=== PATIENT | male | born 1950 | race Caucasian/White ===

== ENCOUNTER 2022-12-09 14:24 | Outpatient (CLI) | payer MEDICARE, OTHER | END 2022-12-09 23:59 | disposition critical access hospital (66) | LOC: EMS 14:24 | DX: R46.4 Slowness and poor responsiveness (principal); R41.0 Disorientation, unspecified; R61 Generalized hyperhidrosis; R00.0 Tachycardia, unspecified; W18.39XA Other fall on same level, initial encounter; Y93.02 Activity, running; Y92.414 Local residential or business street as the place of occurrence of the external cause | CPT/HCPCS: A0425; A0427 ==

== ENCOUNTER 2022-12-09 14:46 | Emergency (ER) | payer MEDICARE, OTHER ==
[2022-12-09] MEDS ORDERED: SODIUM CHLORIDE 0.9% 1,000 ML IV STA (15:14)
[2022-12-09 15:25] LABS: BASOPHILS # (AUTO) 0.1 10^3/uL (0.0-0.1); BASOPHILS % (AUTO) 1.4 %; EOSINOPHILS # (AUTO) 0.1 10^3/uL (0.0-0.7); EOSINOPHILS % (AUTO) 2.8 %; HCT - HEMATOCRIT 45.9 % (42.0-52.0); HGB - HEMOGLOBIN 15.5 g/dL (14.0-18.0); LYMPHOCYTES # (AUTO) 0.8 10^3/uL (1.5-3.5); LYMPHOCYTES % (AUTO) 19.1 %; MEAN CORPUSCULAR HEMOGLOBIN 30.1 pg (27.0-31.0); MEAN CORPUSCULAR HGB CONC 33.8 g/dL (32.0-36.0); MEAN CORPUSCULAR VOLUME 89.1 fL (80.0-94.0); MEAN PLATELET VOLUME 9.2 fL (7.4-11.4); MONOCYTES # (AUTO) 0.4 10^3/uL (0.0-1.0); MONOCYTES % (AUTO) 10.1 %; NEUTROPHILS # (AUTO) 2.8 10^3/uL (1.5-6.6); NEUTROPHILS % (AUTO) 65.7 %; PLT - PLATELET COUNT 243 10^3/uL (130-450); RED BLOOD COUNT 5.15 10^6/uL (4.70-6.10); RED CELL DISTRIBUTION WIDTH 12.6 % (12.0-15.0); WHITE BLOOD COUNT 4.3 x10^3/uL (4.8-10.8)
[2022-12-09 15:41] LABS: ALBUMIN 4.2 g/dL (3.2-5.5); ALBUMIN/GLOBULIN RATIO 1.6 (1.0-2.2); ALKALINE PHOSPHATASE 85 IU/L (42-121); ALT ALANINE AMINOTRANSFERASE 4 IU/L (10-60); AST ASPARTATE AMINOTRANSFERASE 16 IU/L (10-42); BILIRUBIN,TOTAL 0.8 mg/dL (0.2-1.0); BUN - BLOOD UREA NITROGEN 13 mg/dL (6-20); CALCIUM 9.6 mg/dL (8.5-10.3); CARBON DIOXIDE - CO2 28 mmol/L (21-32); CHLORIDE 103 mmol/L (101-111); CREATININE 0.8 mg/dL (0.6-1.3); ETOH - ETHANOL < 10.0 mg/dL; GFR - MDRD 94 (>89); GLUCOSE 95 mg/dL (74-104); POTASSIUM 3.9 mmol/L (3.5-4.5); SODIUM 136 mmol/L (135-145); TOTAL PROTEIN 6.9 g/dL (6.4-8.9)
--- NOTE | 2022-12-09 15:49 | ED Physician Documentation ---
PD HPI HEAD INJURY - Stated complaint Stated Complaint: Fall - Chief complaint Chief Complaint: Neuro - History obtained from History obtained from: Patient, Family, EMS - Additional information Additional information: Patient is a 72-year-old male with a history of dementia and Parkinson's presenting for evaluation after a witnessed head injury. Patient was out for a run when a bystander saw him trip and fall and hit his head. There is no reported LOC. Patient initially did not want to come for medical evaluation. Patient does not take a blood thinner.He is able to state his name and where he is but is unable to tell me where he was running but knows that he was out for a run. He denies any complaints. Per patient's was at the bedside with them they go for a mile and a half walk every day and sometimes he jogs. Today he was jogging in front of her and ran past her house as he does not always recognize it. He then fell which she did not see but another bystander did. She also reports he fell yesterday during their walk and did sustain abrasions to his head from yesterday's fall. Patient was able to tell me that the abrasions on his face are from yesterday's fall. states that his current confusion is baseline for him and is usually worse in the afternoon and is not been changed in recent days. Review of Systems Unable to obtain: Dementia PD ED PE NORMAL - General General: No acute distress, Well developed/nourished. No: Alert and oriented X 3 (Alert and oriented to person and place but not to month or year.) - HEENT HEENT: PERRL, EOMI, Moist mucous membranes, Pharynx benign, Other (Abrasion to right temporal region) - Neck Neck: Supple, no meningeal sign, No bony TTP. No: C-Spine cleared by NEXUS criteria (Confusion) - Cardiac Cardiac: RRR, No murmur - Respiratory Respiratory: No respiratory distress, Clear bilaterally - Abdomen Abdomen: Soft, Non tender, Non distended - Back Back: No spinal TTP - Derm Derm: Normal color - Extremities Extremities: No deformity - Neuro Neuro: supervisor grading 2-12 intact, No motor deficit, No sensory deficit, Normal speech. No: Alert and oriented X 3 (AO x2) Eye Opening: Spontaneous Motor: Obeys Commands Verbal: Confused GCS Score: 14 Results - Vitals Vitals: Vital Signs - 24 hr 12/09/22 12/09/22 14:56 16:53 Temperature 36.6 C Heart Rate 68 82 Respiratory 22 18 Rate Blood Pressure 147/106 H 148/115 H O2 Saturation 98 100 Oxygen O2 Source Room air - Labs Labs: Laboratory Tests 12/09/22 12/09/22 12/09/22 15:20 15:20 15:20 WBC 4.3 L RBC 5.15 Hgb 15.5 Hct 45.9 MCV 89.1 MCH 30.1 MCHC 33.8 RDW 12.6 Plt Count 243 MPV 9.2 Neut # (Auto) 2.8 Lymph # (Auto) 0.8 L [place] # (Auto) 0.4 Eos # (Auto) 0.1 Baso # (Auto) 0.1 Absolute Nucleated RBC 0.00 Nucleated RBC % 0.0 Sodium 136 Potassium 3.9 Chloride 103 Carbon Dioxide 28 Anion Gap 5.0 L BUN 13 Creatinine 0.8 Estimated GFR (MDRD) 94 Glucose 95 Calcium 9.6 Total Bilirubin 0.8 AST 16 ALT 4 L Alkaline Phosphatase 85 Total Creatine Kinase 91 Total Protein 6.9 Albumin 4.2 Globulin 2.7 Albumin/Globulin Ratio 1.6 Urine Color Urine Clarity Urine pH Ur Specific [place] Urine Protein Urine Glucose (UA) Urine Ketones Urine Occult Blood Urine Nitrite Urine Bilirubin Urine Urobilinogen Ur Leukocyte Esterase Ur Microscopic Review Urine Culture Comments Ethyl Alcohol < 10.0 12/09/22 16:09 WBC RBC Hgb Hct MCV MCH MCHC RDW Plt Count MPV Neut # (Auto) Lymph # (Auto) [place] # (Auto) Eos # (Auto) Baso # (Auto) Absolute Nucleated RBC Nucleated RBC % Sodium Potassium Chloride Carbon Dioxide Anion Gap BUN Creatinine Estimated GFR (MDRD) Glucose Calcium Total Bilirubin AST ALT Alkaline Phosphatase Total Creatine Kinase Total Protein Albumin Globulin Albumin/Globulin Ratio Urine Color YELLOW Urine Clarity CLEAR Urine pH 6.5 Ur Specific [place] 1.020 Urine Protein NEGATIVE Urine Glucose (UA) NEGATIVE Urine Ketones NEGATIVE Urine Occult Blood NEGATIVE Urine Nitrite NEGATIVE Urine Bilirubin NEGATIVE Urine Urobilinogen 0.2 (NORMAL) Ur Leukocyte Esterase NEGATIVE Ur Microscopic Review NOT INDICATED Urine Culture Comments NOT INDICATED Ethyl Alcohol PD Medical Decision Making - ED course Complexity details: reviewed results, re-evaluated patient, d/w patient, d/w family ED course: Pt with Parkinson and dementia presenting after fall while jogging. Appears to be at baseline. Normal neuro exam other than baseline confusion. CT head and cspine with no acute findings. Labs and UA without significant findings. Per , pt at baseline here and pt is eager for discharge. Counseled on concerning symptoms to return for. Departure - Departure Disposition: 01 Home, Self Care Clinical Impression: Head injury, Parkinson disease Condition: Stable Instructions: ED Head Injury Closed Comments: The CT scans of your head and neck do not show any injuries. Your labs are also reassuring. Your urine does not show any infection. Please use acetaminophen for any areas of pain. Return to the ER with any new concerns. Forms: PCP List Discharge Date/Time: 12/09/22 16:58
--- NOTE | 2022-12-09 16:01 | CT Report ---
PROCEDURE: HEAD WO INDICATIONS: fall/dementia TECHNIQUE: Noncontrast 4.5 mm thick angled axial sections acquired from the foramen magnum to the vertex. For r adiation dose reduction, the following was used: automated exposure control, adjustment of mA and/or kV according to patient size. COMPARISON: None. FINDINGS: Image quality: Excellent. CSF spaces: Basal cisterns are patent. No extra-axial fluid collections. Ventricles are normal in size and shape. Brain: No midline shift. No intracranial masses or hemorrhage. No mass effect. Conner-white matter in terface is normal. There cerebral volume loss for age with resultant ventricular and sulcal prominenc e. There are periventricular and deep white matter chronic small vessel ischemic changes. Atheroscler otic calcifications are noted in the intracranial segments of the bilateral internal carotid arteries . Skull and face: Calvarium and visualized facial bones are intact, without suspicious lesions. Sinuses: Visualized sinuses and mastoids are clear. IMPRESSION: CT head without acute intracranial abnormalities or acute calvarial fractures. Age-related senescent changes and sequela chronic small vessel ischemic disease. Reviewed by: Hung Santo MD on 12/09/2022 2:59 PM ISA Approved by: Hung Santo MD on 12/09/2022 2:59 PM ISA Station ID: [id number]
--- NOTE | 2022-12-09 16:03 | CT Report ---
PROCEDURE: CERVICAL SPINE WO INDICATIONS: fall/dementia TECHNIQUE: Noncontrast 3 mm thick sections acquired from the skull base to the T4 level. Sagittal and coronal r eformats were then constructed. For radiation dose reduction, the following was used: automated exp osure control, adjustment of mA and/or kV according to patient size. COMPARISON: None. FINDINGS: Image quality: Excellent. Bones: No acute fractures or dislocations. No acute compression fractures of the vertebral bodies. C raniocervical junction is intact. C1-C2 relationship is preserved. Visualized superior ribs are intac t. Multilevel cervical spondylosis. Soft tissues: Prevertebral soft tissues are normal in thickness. No paravertebral hematomas. No ap ical pneumothoraces. IMPRESSION: CT cervical spine without acute fracture or traumatic malalignment. Multilevel cervical spondylosis. Reviewed by: Hung Santo MD on 12/09/2022 3:02 PM ISA Approved by: Hung Santo MD on 12/09/2022 3:02 PM ISA Station ID: [id number]
[2022-12-09 16:20] LABS: BILIRUBIN,URINE NEGATIVE (NEGATIVE); GLUCOSE, URINE (UA) NEGATIVE (NEGATIVE); KETONES,URINE (UA) NEGATIVE (NEGATIVE); LEUKOCYTE ESTERASE, URINE NEGATIVE (NEGATIVE); NITRITE,URINE NEGATIVE (NEGATIVE); OCCULT BLOOD,URINE NEGATIVE (NEGATIVE); PH,URINE 6.5 PH (5.0-7.5); PROTEIN,URINE NEGATIVE (NEGATIVE); UROBILINOGEN,URINE 0.2 (NORMAL) E.U./dL (NORMAL)
[2022-12-09 16:21] LABS: CLARITY,URINE CLEAR (CLEAR)
[2022-12-09 16:59] VITALS: BP 148/115
== END 2022-12-09 16:58 | disposition home or self-care (01) ==
LOC: ED 14:46
DX: S09.90XA Unspecified injury of head, initial encounter (principal); W01.0XXA Fall on same level from slipping, tripping and stumbling without subsequent striking against object, initial encounter; Z91.81 History of falling; Y93.02 Activity, running; G20 Parkinson's disease; F02.80 Dementia in other diseases classified elsewhere, unspecified severity, without behavioral disturbance, psychotic disturbance, mood disturbance, and anxiety
CPT/HCPCS: 36415; 70450; 72125; 80053; 81003; 82550; 85025; 99283; 99284; G0480; 80320; 81001; 87086

== ENCOUNTER 2022-12-21 15:37 | Outpatient (CLI) | payer MEDICARE, OTHER | END 2022-12-21 23:59 | disposition short-term general hospital (02) | LOC: EMS 15:37 | DX: S09.93XA Unspecified injury of face, initial encounter (principal); S49.92XA Unspecified injury of left shoulder and upper arm, initial encounter; W18.30XA Fall on same level, unspecified, initial encounter; Y93.01 Activity, walking, marching and hiking; Y92.008 Other place in unspecified non-institutional (private) residence as the place of occurrence of the external cause | CPT/HCPCS: A0425; A0429 ==